=== PATIENT | female | born 1945 | race Caucasian/White ===

== ENCOUNTER 2023-06-25 08:22 | Day surgery (SDC) | payer MEDICARE, OTHER, SELFPAY ==
[2023-06-25] VITALS (8 sets, daily range): BP systolic 97–153; BP diastolic 47–119; BMI 34.8
[2023-06-25 10:30] LABS: ACT-LR - POC 263 Seconds (116-155)
[2023-06-25] MEDS: NSS 1000 IV (11:35)
[2023-06-25] MEDS: NORVASC 2.5 MG PO (11:35)
--- NOTE | 2023-06-25 11:47 | ITS.CL.CATH ---
[facility] - Catheterization
Cardiac Catheterization
Procedure Report:
LEFT HEART CATHETERIZATION
Date of Procedure: June 25, 2023
Referring: Dr. Li Winston
PROCEDURES:
1. Left heart catheterization with coronary angiography
2. Hemodynamic assessment of LAD using a [place] Verrata wire
INDICATION: This is a 77-year-old female with a prior history of coronary artery disease and remote stenting of the mid LAD in 2004. She is now referred for coronary angiography after reporting heart palpitations and shortness of breath with some
chest discomfort when walking up hills or a flight of stairs. She was started on a nitroglycerin patch and referred for coronary angiography. Her last stress study in October 2022 was notable for preserved left ventricular function and normal perfusion
with no fixed or reversible defect.
ACCESS: Right radial artery, 6 Jordanian sheath
HEMODYNAMICS : (mmHg)
AO (s/d) : 132/60
LV (s/d) : 136/9
LVEDP : 23
CORONARY FINDINGS
DOMINANCE: Right
LEFT MAIN: Normal
LEFT ANTERIOR DESCENDING: The LAD arises normally from the left main and runs in the anterior interventricular groove. A large first diagonal branch arises from the proximal third of the LAD and has a 40% ostial stenosis. The mid LAD beyond the
diagonal branch is patent leading into the stented segment in the mid LAD where a 50% stenosis is noted on the proximal edge of the stent. There is mild in-stent restenosis that angiographically appears slightly worse now than on the prior
angiogram from 2014. The iFR at the distal edge of the stent serially measured 1.0, 1.0, and 0.99
CIRCUMFLEX: The circumflex is a large caliber nondominant vessel that supplies a small OM1 and moderate-sized bifurcating OM2
RIGHT CORONARY ARTERY: The right coronary artery is a dominant vessel with a proximal stoddard's crook. The right coronary artery is widely patent over its course with only very minor luminal irregularities noted. The PDA is widely patent but
quite tortuous.
VENTRICULOGRAPHY: Left cavography was performed in CAMPOS projection. The digital single-plane left ventricular ejection fraction is estimated at 60%.
HEMODYNAMIC ASSESSMENT OF THE LAD WITH A [place] VERRATA WIRE: The origin of the left main was cannulated with a 6 Fr JL4 guide catheter. Intravenous heparin was administered at the beginning of the diagnostic procedure and the ACT was obtained
prior to proceeding with the iFR. Two hundred micrograms of intracoronary nitroglycerin was given through the guide catheter. A [place] Verrata wire was advanced to the guide catheter tip and normalized to guide catheter pressure. The Omni wire
was then carefully manipulated across the stenosis in the mid LAD with a moderate degree of difficulty. The transducer in the Verrata wire was positioned at the distal edge of the stent and the iFR serially measured 1.0, 1.0, and 0.99. PCI was
deferred.
RADIATION SUMMARY: Fluoro Time (min): 10.5, Dose (mGy): 500.4, DAP (Gy.cm2) : 44.9
Closure Device: TR band
CONCLUSIONS
1. Moderate in-stent restenosis with iFR above the ischemic threshold
2. Preserved left ventricular function
RECOMMENDATIONS
1. Will add amlodipine to current medical regimen as an additional antianginal/blood pressure medication
2. Dr. Winston will reevaluate
3. Could consider repeat stress study to assess for significant anterior ischemia should symptoms persist in spite of aggressive medical therapy. I would only be concerned about sizable ischemic territory
Copy to: Dr. Li Winston
--- NOTE | 2023-06-25 16:47 | W.PN.UPDATE ---
Update Note
Progress Note Update
Patient had a radial catheterization earlier today. She went to [facility] and the radial puncture site began bleeding again. She held pressure and presented to the emergency room for evaluation. The arteriotomy site is found to be soft. Mild
ecchymosis. There is no hematoma. There is no bruit.
Plan:
-I placed a TR band with 5 mL of air and will leave in place for an hour
-After an hour I will review move air or leave bladder with 1 or 2 ml and leave the bandage in place for an hour then she can remove TR band at home.
== END 2023-06-25 14:08 | disposition home or self-care (01) ==
LOC: CATH 08:22
PROVIDERS: ATTENDING PHYSICIAN Internal Medicine Interventional Cardiology; FAMILY PHYSICIAN Internal Medicine; OTHER PHYSICIAN Internal Medicine Cardiovascular Disease
DX: I25.118 Atherosclerotic heart disease of native coronary artery with other forms of angina pectoris (principal); T82.855A Stenosis of coronary artery stent, initial encounter; Y83.1 Surgical operation with implant of artificial internal device as the cause of abnormal reaction of the patient, or of later complication, without mention of misadventure at the time of the procedure; Z95.5 Presence of coronary angioplasty implant and graft; R07.89 Other chest pain; R00.2 Palpitations; R06.02 Shortness of breath; Z79.82 Long term (current) use of aspirin
CPT/HCPCS: 85347; 93458; 93571; C1894; Q9967

== ENCOUNTER 2023-06-25 14:30 | Emergency (ER) | payer MEDICARE, OTHER, SELFPAY ==
[2023-06-25 14:32] VITALS: BP 143/64
--- NOTE | 2023-06-25 15:19 | ED.GENMED ---
History of Present Illness
General
Chief Complaint: Post Operative Problem(s)
Source: patient
Exam Limitations: none
Time Seen by Provider: 06/25/23 14:50
Nursing documentation reviewed up to this point in time: agreed with
Travel History
Have you had any contact with someone who has COVID-19?: No
Do you have any symptoms of coronavirus? Fever > 100 degrees, chills, cough, shortness of breath, sore throat, loss of taste or smell, muscle aches, or headache?: No
History of Present Illness
History of Present Illness:
77 Y/O f WITH H/O HTN, HLD
just had a cardiac cath from [facility] by dr. loredo at 10 am
she was discharged around 2 pm
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
held pressure for 10 minutes and it did stop
she has had a little pain at the site but no numbness/tingling
no sob
no fever
Past History
Past History
ED Past Medical History: HTN and Hypercholesterolemia
ED Past Surgical History: Cardiac (subclavian bypass)
Social History
Tobacco: Non-smoker
Review of Systems
Review of Systems
Allergies reviewed?: Yes
All Other Systems: Not applicable
Phy Exam
Physical Exam
Physical Exam:
GENERAL: Alert , in no apparent distress, comfortable at rest
HEAD: NCAT
CV: 2+
cap refill intact
NEUROLOGICAL: Alert and oriented, no focal neuro deficits, , 5/5 strength, sensation intact, ambulation slight limp right leg
SKIN: Warm and dry,
dressing on the right wrist radial aspect with a small 2x2 soaked with blood, tegaderm on top which is still in place
no bleeding
MUSCULOSKELETAL: right wrist full rom
normal hand exam
no signifiant swelling
PSYCH: Normal and appropriate interaction.
Course
Vital Signs
Initial and Last Documented VS:
Initial Vital Signs
Temp Pulse Resp BP Pulse Ox
97.8 F 71 18 143/64 99
06/25/23 14:32 06/25/23 14:32 06/25/23 14:32 06/25/23 14:32 06/25/23 14:32
Last Documented Vital Signs
Temp Pulse Resp BP Pulse Ox
97.8 F 71 18 143/64 99
06/25/23 14:32 06/25/23 14:32 06/25/23 14:32 06/25/23 14:32 06/25/23 14:32
MDM/Problems Addressed
Differential Diagnosis Includes:
post op bleeding, psuedoaneurysm
MDM/Problems Addressed:
77 y/o F with bleeding from right radial wrist cath site which is controlled
bled for about 10 mintues
responded well to holding pressure
mild discomfort
vitals stable
d/w dr. loredo who saw the patient in the ER
he put a new TR band on the patient's wrist and we observed for 1 hour, he took a few cc off the balloon and he returned and reassessed, no bruit and no bleeding
pt can go home with this band in place for 1 more hour then remove at home
she was given these intstructions verbally by me and by dr. loredo
she left without signing her papework accidentally.
*Critical Care Note
Total Time (30-74mins, 75-104mins- exclusive of procedures): Not Applicable
ED Attending Note
-
Portions of this chart may have been created with voice recognition software.� Occasional wrong word or��sound alike� substitutions may have occurred due to the inherent limitations of voice recognition software.
Discharge Plan
Departure
Patient Disposition: Home (Routine Discharge)
Date of Disposition: 06/25/23
Time of Disposition: 17:18
Patient with high blood pressure during this ER visit?: No
Condition: Fair
Discharge Problem:
Post-op bleeding
Instructions: Bleeding After Surgery
Prescriptions:
No Action
atorvastatin 40 MG tablet
40 mg PO QPM
aspirin 325 MG tablet
81 mg PO DAILY
levothyroxine 50 MCG tablet
50 mcg PO Q48H
valsartan-hydrochlorothiazide 1 EACH tablet
1 tab PO DAILY
Rx Instructions:
160/25
ezetimibe 10 MG tablet
10 mg PO DAILY
polyethylene glycol 3350 17 GRAMS powder in packet
1 pack PO DAILY
nitroglycerin 0.4 MG tablet, sublingual
0.4 mg sublingual [id number] PRN (Reason: chest pain)
coenzyme Q10 100 MG capsule
100 mg PO DAILY
multivitamin Tablet
1 tab PO DAILY
nitroglycerin 0.2 mg/hr Patch 24 Hour
1 patch TRANSDERMAL DAILY
levothyroxine [Synthroid] 75 mcg Tablet
75 mcg PO Q48H
Retaine Eye Drops
1 dose BOTH EYES PRN PRN (Reason: DRY EYES )
amlodipine 2.5 mg tablet
2.5 mg PO DAILY Qty: 30 5RF
Referrals:
Kristy Pastrana MD [Family Provider] - Follow up in 2-3 days
Activity Restrictions/Additional Instructions:
YOU HAD SOME BLEEDING FROM YOUR INCISION SITE
DR. LOREDO WANTS YOU TO WEAR THIS FOR ANOTHER HOUR BEFORE REMOVING AT HOME
THEN PUT A BANDAID ON AND MAKE SURE TO KEEP IT FROM MOVING TOO MUCH. 'PRETEND THAT IT'S BROKEN'
RETURN FOR ANY CHANGE IN SENSATION TO HAND, SEVERE PAIN/SWELLING, BLEEDING OR ANY CONCERNS.
Interventions
Interventions:
ED-Skin Assessment Last Done: 06/25/23 15:07
== END 2023-06-25 17:20 | disposition home or self-care (01) ==
LOC: EMR 14:30
PROVIDERS: EMERGENCY PHYSICIAN Emergency Medicine; FAMILY PHYSICIAN Internal Medicine; REFERRING PHYSICIAN Internal Medicine Cardiovascular Disease
DX: I97.610 Postprocedural hemorrhage of a circulatory system organ or structure following a cardiac catheterization (principal); Y84.0 Cardiac catheterization as the cause of abnormal reaction of the patient, or of later complication, without mention of misadventure at the time of the procedure; Z79.82 Long term (current) use of aspirin; Z88.1 Allergy status to other antibiotic agents; Z88.2 Allergy status to sulfonamides
CPT/HCPCS: 99282; 85347; 93458; 93571; C1894; Q9967

== ENCOUNTER → 2023-07-17 10:31 | Outpatient (REF) | payer MEDICARE, OTHER, SELFPAY | LOC: RCS 10:31 | PROVIDERS: ATTENDING PHYSICIAN Internal Medicine Cardiovascular Disease; FAMILY PHYSICIAN Internal Medicine | DX: I25.10 Atherosclerotic heart disease of native coronary artery without angina pectoris (principal); I10 Essential (primary) hypertension | CPT/HCPCS: 93306 ==

== ENCOUNTER → 2023-08-21 10:50 | Outpatient (REF) | payer MEDICARE, OTHER, SELFPAY | LOC: RAD 10:50 | PROVIDERS: ATTENDING PHYSICIAN Nurse Practitioner Adult Health; FAMILY PHYSICIAN Internal Medicine | DX: R06.09 Other forms of dyspnea (principal) | CPT/HCPCS: 71046 ==

== ENCOUNTER → 2023-10-31 07:47 | Outpatient (REF) | payer MEDICARE, OTHER, SELFPAY ==
[2023-10-31 10:43] LABS: ALT (SGPT) 62 U/L (0-35); AST (SGOT) 67 U/L (14-36); Alkaline Phosphatase 71 U/L (38-126); Blood Urea Nitrogen 21 mg/dl (7-17); Calcium 9.1 mg/dl (8.4-10.2); Carbon Dioxide 30 mmol/L (22-30); Chloride 104 mmol/L (98-107); Glucose 97 mg/dl (70-99); HDL Cholesterol 68 mg/dl; LDL Cholesterol, Calculated 65 mg/dl; Potassium 4.7 mmol/L (3.5-5.1); Sodium 142 mmol/L (135-145); Total Bilirubin 1.1 mg/dl (0.2-1.3); Total Cholesterol 142 mg/dl (50-199); Total Protein 6.6 g/dl (6.3-8.2); Triglyceride 48 mg/dl (10-149); Very Low Density Lipoprotein 9 mg/dl (0-30); eGFR > 60.00
== END ==
LOC: REG 07:47
PROVIDERS: ATTENDING PHYSICIAN Internal Medicine Cardiovascular Disease; FAMILY PHYSICIAN Internal Medicine
DX: E78.5 Hyperlipidemia, unspecified (principal)
CPT/HCPCS: 36415; 80053; 80061

== ENCOUNTER → 2023-11-21 09:13 | Outpatient (REF) | payer MEDICARE, OTHER, SELFPAY | LOC: CLAB 09:13 | PROVIDERS: ATTENDING PHYSICIAN Urology | DX: N39.0 Urinary tract infection, site not specified (principal) | CPT/HCPCS: 87077; 87086; 87147 ==

== ENCOUNTER → 2023-12-13 08:12 | Outpatient (REF) | payer MEDICARE, OTHER, SELFPAY | LOC: RAD 08:12 | PROVIDERS: ATTENDING PHYSICIAN Urology; FAMILY PHYSICIAN Internal Medicine | DX: N39.0 Urinary tract infection, site not specified (principal) | CPT/HCPCS: 76770 ==

== ENCOUNTER → 2023-12-17 10:03 | Outpatient (REF) | payer MEDICARE, OTHER, SELFPAY | LOC: RAD 10:03 | PROVIDERS: ATTENDING PHYSICIAN Urology; FAMILY PHYSICIAN Internal Medicine | DX: R93.89 Abnormal findings on diagnostic imaging of other specified body structures (principal); N13.30 Unspecified hydronephrosis | CPT/HCPCS: 74176 ==

== ENCOUNTER 2024-01-17 08:23 | Outpatient (RCR) | payer MEDICARE, OTHER, SELFPAY | END 2024-01-17 23:59 | disposition home or self-care (01) | LOC: RPT 08:23 | PROVIDERS: ATTENDING PHYSICIAN Urology; FAMILY PHYSICIAN Internal Medicine | DX: M62.89 Other specified disorders of muscle (principal); Z73.6 Limitation of activities due to disability | CPT/HCPCS: 97163; 97530 ==

== ENCOUNTER → 2024-01-30 11:04 | Outpatient (REF) | payer MEDICARE, OTHER, SELFPAY | LOC: WDC 11:04 | PROVIDERS: ATTENDING PHYSICIAN Internal Medicine; FAMILY PHYSICIAN Internal Medicine | DX: Z12.31 Encounter for screening mammogram for malignant neoplasm of breast (principal) | CPT/HCPCS: 77063; 77067 ==

== ENCOUNTER → 2024-03-05 11:04 | Outpatient (REF) | payer MEDICARE, OTHER, SELFPAY | LOC: RAD 11:04 | PROVIDERS: ATTENDING PHYSICIAN Internal Medicine | DX: M47.812 Spondylosis without myelopathy or radiculopathy, cervical region (principal) | CPT/HCPCS: 72040 ==

== ENCOUNTER → 2024-05-29 13:54 | Outpatient (REF) | payer MEDICARE, OTHER, SELFPAY | LOC: RAD 13:54 | PROVIDERS: ATTENDING PHYSICIAN Internal Medicine Cardiovascular Disease; FAMILY PHYSICIAN Internal Medicine | DX: I25.119 Atherosclerotic heart disease of native coronary artery with unspecified angina pectoris (principal); G45.8 Other transient cerebral ischemic attacks and related syndromes | CPT/HCPCS: 93880 ==

== ENCOUNTER → 2024-06-10 14:46 | Outpatient (REF) | payer MEDICARE, OTHER, SELFPAY | LOC: MRI 3T 14:46 | PROVIDERS: ATTENDING PHYSICIAN Hospitalist | DX: M54.31 Sciatica, right side (principal); R29.898 Other symptoms and signs involving the musculoskeletal system | CPT/HCPCS: 72148 ==

== ENCOUNTER 2024-06-27 15:06 | Emergency (ER) | payer MEDICARE, OTHER, SELFPAY ==
[2024-06-27] VITALS (7 sets, daily range): BP systolic 109–138; BP diastolic 57–72; PULSE 71–84
[2024-06-27 15:38] LABS: % Basophils 0.8 % (0-2); % Eosinophils 0.3 % (0-6); % Immature Granulocytes 0.1 % (0-0.5); % Lymphocytes 17.4 % (20.5-51.1); % Monocytes 6.3 % (1.7-9.3); % Neutrophils 75.1 % (42.2-75.2); Absolute Basophils 0.1 10^3/uL (0-0.2); Absolute Lymphocytes 1.3 10^3/uL (1.2-3.4); Absolute Monocytes 0.5 10^3/uL (0.1-0.6); Absolute Neutrophils 5.6 10^3/uL (1.4-6.5); Hematocrit 40.7 % (37.0-47.0); Hemoglobin 14.3 g/dL (12.0-16.0); Mean Corp Hgb Conc. 35.1 g/dL (33.0-37.0); Mean Corpuscular Hgb 31.4 pg (27.0-31.0); Mean Corpuscular Volume 89.5 fL (81.0-99.0); Nucleated Red Blood Cells % 0 %; Platelet Count 233 10^3/uL (130-400); Red Blood Cell Count 4.55 10^6/uL (4.20-5.40); Red Cell Dist. Width 12.7 % (11.5-14.5); White Blood Cell Count 7.5 10^3/uL (4.8-10.8)
[2024-06-27 15:57] LABS: ALT (SGPT) 41 U/L (0-35); AST (SGOT) 44 U/L (14-36); Albumin 4.4 g/dl (3.5-5.0); Alkaline Phosphatase 77 U/L (38-126); Blood Urea Nitrogen 27 mg/dl (7-17); Calcium 9.4 mg/dl (8.4-10.2); Carbon Dioxide 26 mmol/L (22-30); Chloride 102 mmol/L (98-107); Glucose 131 mg/dl (70-99); Potassium 3.8 mmol/L (3.5-5.1); Sodium 138 mmol/L (135-145); Total Bilirubin 1.9 mg/dl (0.2-1.3); Total Protein 7.2 g/dl (6.3-8.2); eGFR > 60.00
[2024-06-27 16:05] LABS: Troponin I < 0.012 ng/ml
[2024-06-27 18:41] LABS: Troponin I < 0.012 ng/ml
--- NOTE | 2024-06-27 19:12 | ED.GENMED ---
History of Present Illness
General
Chief Complaint: Chest Pain
Source: patient and spouse
Exam Limitations: none
Time Seen by Provider: 06/27/24 16:50
History of Present Illness
History of Present Illness:
This is 78-year-old female who presents for evaluation of feeling lightheaded and a little bit like her heart was racing when she stood up earlier. The patient also states 'I think I had a heart attack 1-1/2 weeks ago.' The patient states that she
had developed some chest pain dizziness and and sweating. She did not have a ride to come to the hospital so decided to wait it out. She states it only lasted about 5 minutes. Patient states she has had no chest pain since then and had no chest
pain today. She is followed by Dr. Winston. She does wear nitroglycerin patch. She did have a cardiac catheterization in June 2023 and it was reviewed by me showing some in-stent restenosis and patient was put on amlodipine. No
palpitations currently. Laying in bed she feels well. Spouse states she has had a lot going on but has seemed to be stable the event 1 week ago. She states that the pain only lasted 5 minutes.
Past History
Past History
ED Past Medical History: CAD, HTN and Hypercholesterolemia
ED Past Surgical History: Cardiac (subclavian bypass)
Social History
Tobacco: Non-smoker
Phy Exam
Physical Exam
Physical Exam:
CONSTITUTIONAL Patient alert and oriented to person, place and time. Well-appearing. Vital signs reviewed.
HEAD atraumatic, normocephalic.
EYES eyelids normal to inspection, Extraocular muscles intact, Conjunctiva normal, Sclera normal.
NECK normal range of motion, Trachea midline, no jugular venous distention.
RESPIRATORY CHEST No respiratory distress noted, Chest expansion equal, Bilateral breath sounds clear.
CARDIOVASCULAR regular rate and rhythm, Heart sounds normal.
ABDOMEN abdomen nontender, Bowel sounds normal. No distention.
BACK normal inspection, no obvious deformities
UPPER EXTREMITY range of motion normal, Motor strength normal, no cyanosis, no edema.
LOWER EXTREMITY range of motion normal, Motor strength normal, no cyanosis, no edema.
NEURO Speech normal, No focal motor deficits, Kent coma scale 15, Memory normal, Cranial Nerves intact to screening exam.
SKIN skin warm, dry, and normal in color.
Scores
Heart Score for Chest Pain Patients
STEMI patient?: No
History: Slightly or Non-Suspicious
ECG: Nonspecific Repolarization
Age: >/= 65 years
Risk Factors: >/= 3 Risk Factors or History of CAD
Troponin: </= Normal Limit
Heart Score for Chest Pain Patients: 5
Heart Score Risk: 20.3% MACE over next 6 weeks
Course
Orders/Labs/Results
Orders:
Orders
06/27/24 15:07
Electrocardiogram (*1) Urgent
Reason for Study: Chest Pain
EKG- Treatment ONCE
06/27/24 15:28
Complete Blood Count/With Diff Urgent
Comprehensive Metabolic Panel Urgent
Troponin I Urgent
06/27/24 17:53
Orthostatic VS- Treatment ONCE
06/27/24 17:54
CR Chest - 2 Views Urgent
Comment:
Reason For Exam: CP
06/27/24 18:12
Troponin I Urgent
Abnormal Lab Results
06/27/24
15:28
MCH 31.4 H pg
(27.0-31.0)
Lymphocytes % 17.4 L %
(20.5-51.1)
BUN 27 H mg/dl
(7-17)
Glucose 131 H mg/dl
(70-99)
Total Bilirubin 1.9 H mg/dl
(0.2-1.3)
AST 44 H U/L
(14-36)
ALT 41 H U/L
(0-35)
06/27/24 15:28
06/27/24 15:28
Vital Signs
Initial and Last Documented VS:
Initial Vital Signs
Temp Pulse Resp BP Pulse Ox
98.1 F 89 16 138/72 98
06/27/24 15:17 06/27/24 15:17 06/27/24 15:17 06/27/24 15:17 06/27/24 15:17
Last Documented Vital Signs
Temp Pulse Resp BP Pulse Ox
98.1 F 72 28 109/67 96
06/27/24 15:17 06/27/24 19:21 06/27/24 19:21 06/27/24 19:21 06/27/24 19:21
MDM/Problems Addressed
Differential Diagnosis Includes:
Acute coronary syndrome, unstable angina, arrhythmia
MDM/Problems Addressed:
Chest pain, near syncope, lightheadedness
*Radiology
Radiology exam reviewed: radiology read reviewed and all reviewed NAD by ED Provider
*Pulse Oximetry
Patient hypoxic: no
*EKG
Interpreted by ED Provider?: Yes
Interpretation: normal
Rate: normal
Rhythm: sinus
[place]: normal axis
Interval: normal interval
Ischemia: no ischemia
*Microbiological Analyst Interpretation
Rate: normal
Interpretation: normal
Rhythm: sinus
*Critical Care Note
Total Time (30-74mins, 75-104mins- exclusive of procedures): Not Applicable
Data Reviewed
Source: patient and family
Patient Management
Discussion with other providers: [employer]ician (Dr. Baig cardiology)
Escalation/DeEscalation of care consider admission/obs:
Consider admission. However both troponins are negative. She has had no further pain. Her vital signs are stable. I did discuss this case with Dr. Baig. Will refer for outpatient follow-up to the hotline.
ED Attending Note
-
Portions of this chart may have been created with voice recognition software.� Occasional wrong word or��sound alike� substitutions may have occurred due to the inherent limitations of voice recognition software.
Discharge Plan
Departure
Patient Disposition: Home (Routine Discharge)
Date of Disposition: 06/27/24
Time of Disposition: 19:22
Patient with high blood pressure during this ER visit?: No
Discharge Problem:
Near syncope, Chest pain
Instructions: Chest Pain CBC Follow Up
Prescriptions:
No Action
atorvastatin 40 MG tablet
40 mg PO QPM
aspirin 325 MG tablet
81 mg PO DAILY
levothyroxine 50 MCG tablet
50 mcg PO Q48H
valsartan-hydrochlorothiazide 1 EACH tablet
1 tab PO DAILY
Rx Instructions:
ezetimibe 10 MG tablet
10 mg PO DAILY
polyethylene glycol 3350 17 GRAMS powder in packet
1 pack PO DAILY
nitroglycerin 0.4 MG tablet, sublingual
0.4 mg sublingual [id number] PRN (Reason: chest pain)
coenzyme Q10 100 MG capsule
100 mg PO DAILY
multivitamin Tablet
1 tab PO DAILY
nitroglycerin 0.2 mg/hr Patch 24 Hour
1 patch TRANSDERMAL DAILY
levothyroxine [Synthroid] 75 mcg Tablet
75 mcg PO Q48H
Retaine Eye Drops
1 dose BOTH EYES PRN PRN (Reason: DRY EYES )
amlodipine 2.5 mg tablet
2.5 mg PO DAILY Qty: 30 5RF
Referrals:
Kristy Pastrana MD [Family Provider] -
Activity Restrictions/Additional Instructions:
Please avoid strenuous or exertional activity until cleared by cardiology. Please see cardiology in the next 48 hours for reevaluation. Return immediately for worsening pain, shortness breath, palpitations, sweating, nausea, weakness of any kind,
numbness, tingling or any other concerns.
Cardiology has been notified and a follow up appointment has been requested. Someone will call you on the next business day to schedule a follow up appointment.
Interventions
Interventions:
*Risk Screen - Suicide Last Done: 06/27/24 15:17
*General Assessment Last Done: 06/27/24 17:36
*Neglect/Abuse Screening Last Done: 06/27/24 15:17
ED- Fall Risk Assessment Last Done: 06/27/24 20:27
*Nursing Disposition Last Done: 06/27/24 20:27
ED- Cardiac Assessment Last Done: 06/27/24 17:36
Discharge Date and Time
Discharge Date/Time: 06/27/24 20:27
Print Language: ICELANDIC
== END 2024-06-27 20:27 | disposition home or self-care (01) ==
LOC: EMR 15:06
PROVIDERS: Emergency Medicine; EMERGENCY PHYSICIAN Emergency Medicine; FAMILY PHYSICIAN Internal Medicine
DX: R07.89 Other chest pain (principal); R42 Dizziness and giddiness; I25.10 Atherosclerotic heart disease of native coronary artery without angina pectoris; I10 Essential (primary) hypertension; E78.00 Pure hypercholesterolemia, unspecified
CPT/HCPCS: 99283; 71046; 80053; 84484; 85025; 93005

== ENCOUNTER → 2024-07-02 08:08 | Outpatient (REF) | payer MEDICARE, OTHER, SELFPAY ==
[2024-07-02 10:03] LABS: % Basophils 0.7 % (0-2); % Eosinophils 0.4 % (0-6); % Immature Granulocytes 0.2 % (0-0.5); % Lymphocytes 17.8 % (20.5-51.1); % Monocytes 8.6 % (1.7-9.3); % Neutrophils 72.3 % (42.2-75.2); Absolute Monocytes 0.5 10^3/uL (0.1-0.6); Absolute Neutrophils 4.1 10^3/uL (1.4-6.5); Hematocrit 44.1 % (37.0-47.0); Hemoglobin 15.5 g/dL (12.0-16.0); Mean Corp Hgb Conc. 35.1 g/dL (33.0-37.0); Mean Corpuscular Hgb 31.6 pg (27.0-31.0); Mean Platelet Volume 9.4 fL (7.4-10.4); Nucleated Red Blood Cells % 0 %; Platelet Count 222 10^3/uL (130-400); Red Cell Dist. Width 12.4 % (11.5-14.5); White Blood Cell Count 5.6 10^3/uL (4.8-10.8)
[2024-07-02 11:03] LABS: Erythrocyte Sed Rate 11 mm/hour (0-20)
[2024-07-02 11:22] LABS: ALT (SGPT) 46 U/L (0-35); AST (SGOT) 55 U/L (14-36); Albumin 4.7 g/dl (3.5-5.0); Alkaline Phosphatase 73 U/L (38-126); Blood Urea Nitrogen 21 mg/dl (7-17); Calcium 9.8 mg/dl (8.4-10.2); Carbon Dioxide 30 mmol/L (22-30); Chloride 100 mmol/L (98-107); Glucose 98 mg/dl (70-99); HDL Cholesterol 71 mg/dl; LDL Cholesterol, Calculated 69 mg/dl; Potassium 4.2 mmol/L (3.5-5.1); Sodium 139 mmol/L (135-145); Total Bilirubin 2.1 mg/dl (0.2-1.3); Total Cholesterol 154 mg/dl (50-199); Total Protein 7.1 g/dl (6.3-8.2); Triglyceride 73 mg/dl (10-149); Very Low Density Lipoprotein 14 mg/dl (0-30); eGFR > 60.00
[2024-07-02 11:29] LABS: C-Reactive Protein < 5.00 mg/L (0.0-10.00)
[2024-07-02 12:01] LABS: TSH 0.59 uIU/ml (0.47-4.68)
[2024-07-02 18:32] LABS: Hepatitis B Surface Antigen Negative (Negative)
[2024-07-02 18:50] LABS: Hepatitis B Surface Antibody Negative; Hepatitis C Antibody Negative (Negative)
[2024-07-03 14:03] LABS: Hepatitis Be Antibody Negative (Negative)
[2024-07-04 00:16] LABS: ANA, IgG Reflex to HEp-2 None Detected (None Detected)
== END ==
LOC: REG 08:08
PROVIDERS: ATTENDING PHYSICIAN Internal Medicine
DX: Z00.00 Encounter for general adult medical examination without abnormal findings (principal); R79.89 Other specified abnormal findings of blood chemistry; E78.5 Hyperlipidemia, unspecified; E03.9 Hypothyroidism, unspecified
CPT/HCPCS: 36415; 80053; 80061; 84443; 85025; 85652; 86038; 86140; 86706; 86707; 86803; 87340

== ENCOUNTER → 2024-07-15 08:07 | Outpatient (REF) | payer MEDICARE, OTHER, SELFPAY | LOC: RAD 08:07 | PROVIDERS: ATTENDING PHYSICIAN Internal Medicine | DX: R79.89 Other specified abnormal findings of blood chemistry (principal) | CPT/HCPCS: 76700 ==

== ENCOUNTER → 2024-12-11 11:54 | Outpatient (REF) | payer MEDICARE, OTHER, SELFPAY ==
[2024-12-11 13:37] LABS: Blood Urea Nitrogen 16 mg/dl (7-17); Calcium 8.9 mg/dl (8.4-10.2); Carbon Dioxide 29 mmol/L (22-30); Chloride 106 mmol/L (98-107); Glucose 89 mg/dl (70-99); Potassium 4.4 mmol/L (3.5-5.1); Sodium 139 mmol/L (135-145); eGFR > 60.00
== END ==
LOC: REG 11:54
PROVIDERS: ATTENDING PHYSICIAN Internal Medicine
DX: R60.9 Edema, unspecified (principal)
CPT/HCPCS: 36415; 80048

== ENCOUNTER → 2025-02-04 15:06 | Outpatient (REF) | payer MEDICARE, OTHER, SELFPAY | LOC: WDC 15:06 | PROVIDERS: ATTENDING PHYSICIAN Internal Medicine | DX: Z12.31 Encounter for screening mammogram for malignant neoplasm of breast (principal) | CPT/HCPCS: 77063; 77067 ==

== ENCOUNTER → 2025-02-19 09:43 | Outpatient (REF) | payer MEDICARE, OTHER, SELFPAY | LOC: PAVMRI 09:43 | PROVIDERS: ATTENDING PHYSICIAN Internal Medicine | DX: R26.9 Unspecified abnormalities of gait and mobility (principal) | CPT/HCPCS: 70553; A9575 ==

== ENCOUNTER 2025-06-01 08:09 | Outpatient (RCR) | payer MEDICARE, OTHER, SELFPAY | END 2025-06-01 23:59 | disposition home or self-care (01) | LOC: RPT 08:09 | PROVIDERS: ATTENDING PHYSICIAN Specialist; FAMILY PHYSICIAN Internal Medicine | DX: R26.81 Unsteadiness on feet (principal); R26.89 Other abnormalities of gait and mobility; Z73.6 Limitation of activities due to disability; R26.2 Difficulty in walking, not elsewhere classified; R42 Dizziness and giddiness; M62.81 Muscle weakness (generalized) | CPT/HCPCS: 97110; 97112; 97161; 97530 ==